=== PATIENT | female | born 2000 | race Two or more races ===

== ENCOUNTER → 2024-07-12 15:26 | Outpatient (CLI) | payer OTHER | END | disposition home or self-care (01) | LOC: PRENATAL 15:26 | PROVIDERS: ATTEND Obstetrics & Gynecology Maternal & Fetal Medicine | DX: O26.849 Uterine size-date discrepancy, unspecified trimester (principal); O36.8199 Decreased fetal movements, unspecified trimester, other fetus; Z3A.32 32 weeks gestation of pregnancy ==

== ENCOUNTER 2024-08-29 07:34 | Inpatient (IN) | payer OTHER ==
[~2024-08-29] VITALS: Ht 157.5 cm; Wt 63.5 kg
[2024-08-29 08:25] VITALS: BP 118/64
[2024-08-29] MEDS ORDERED: AMPICILLIN SODIUM 1,000 MG VIAL IV SCH (09:00)
[2024-08-29] MEDS ORDERED: RINGERS SOLUTION,LACTATED 1,000 ML IV SCH (09:00)
[2024-08-29] MEDS ORDERED: AMPICILLIN SODIUM 2,000 MG VIAL IV ONE (09:00)
[2024-08-29 09:22] LABS: HEMATOCRIT 32.5 % (36.0-45.00); HEMOGLOBIN 11.4 g/dL (12.0-15.00); MEAN CELL VOLUME 92.7 fL (80.00-100.00); MEAN CORPUSCULAR HEMOGLOBIN 32.5 pg (27.00-32.0); MEAN CORPUSCULAR HGB CONC 35.1 g/dl (32.0-36.0); PLATELET COUNT 246 K/uL (150-450); RED BLOOD COUNT 3.51 M/uL (4.00-6.00); RED CELL DISTRIBUTION WIDTH 13.8 % (11.5-14.5)
[2024-08-29 09:30] LABS: INR < 0.93; PARTIAL THROMBOPLASTIN TIME 24.8 SECONDS (22.0-34.0); PROTHROMBIN TIME 9.9 SECONDS (9.0-11.5)
[2024-08-29 09:45] LABS: URINE APPEARANCE Clear; URINE BILIRRUBIN Negative (NEGATIVE); URINE BLOOD Negative; URINE COLOR Yellow; URINE GLUCOSE Negative (NEGATIVE); URINE KETONE Trace (NEGATIVE); URINE LEUKOCYTE Large; URINE NITRATE Negative; URINE PROTEIN Negative (NEGATIVE)
[2024-08-29 09:49] LABS: URINE BACTERIA 4329.2 uL (0.0-1933); URINE EPITHELIAL CELLS 83.3 uL (0.0-38.8); URINE RBC 2.1 uL (0.0-20.8)
[2024-08-29 09:52] LABS: URINE CAST 0.15 uL (0.0-1.40)
[2024-08-29 10:14] LABS: ALBUMIN 2.7 gm/dL (3.4-5.0); BILIRUBIN TOTAL 1.34 mg/dL (0.3-1.2); CALCIUM 9.1 mg/dL (8.5-10.1); CREATININE SERUM 0.52 mg/dL (0.55-1.02); GFR 144.87; GLOBULINA 3.7 G/DL (2.4-3.5); POTASSIUM 4.22 mEq/L (3.5-5.1); TOTAL PROTEIN 6.4 gm/dL (6.4-8.2)
[2024-08-29] MEDS ORDERED: MISOPROSTOL 25 MCG/4 ML GEL.W.APPL VAG ONE (10:45)
[2024-08-29 11:38] VITALS: BP 120/56
[2024-08-29 15:38] VITALS: BP 132/71
[2024-08-29] MEDS ORDERED: OXYTOCIN 500 ML IV SCH (15:45)
[2024-08-29 19:42] VITALS: BP 115/75
[2024-08-29 23:36] VITALS: BP 106/56
[2024-08-30] VITALS (9 sets, daily range): BP systolic 118–136; BP diastolic 63–88
[2024-08-30] MEDS ORDERED: PRENATAL TABLE1 EAC4 PO (09:14)
[2024-08-30] MEDS ORDERED: LABETALOL HCL200 MG PO (09:14)
[2024-08-30] MEDS ORDERED: MORPHINE SULFATE 4 MG/ML CARTRIDGE IV ONE ×2 (10:00→14:00)
[2024-08-30] MEDS ORDERED: IBUprofen 400 MG TABLET PO PRN (20:45)
[2024-08-30] MEDS ORDERED: CHLORHEXIDINE GLUCONATE 120 ML BOTTLE TOP SCH (21:00)
[2024-08-30] MEDS ORDERED: OXYTOCIN 10 UNITS/ML VIAL IM STA (21:00)
[2024-08-30] MEDS ORDERED: OXYTOCIN 1,000 ML IV SCH (21:00)
[2024-08-30] MEDS ORDERED: LIDOCAINE HCL 1% 10ML VIAL IJ ONE (21:00)
[2024-08-31] VITALS: BP 122/83
[2024-08-31 02:02] LABS: HEMATOCRIT 28.9 % (36.0-45.00); MEAN CORPUSCULAR HGB CONC 34.7 g/dl (32.0-36.0); PLATELET COUNT 240 K/uL (150-450); RED BLOOD COUNT 3.11 M/uL (4.00-6.00); RED CELL DISTRIBUTION WIDTH 13.4 % (11.5-14.5)
[2024-08-31 02:03] LABS: MEAN CORPUSCULAR HEMOGLOBIN 32.1 pg (27.00-32.0)
[2024-08-31 07:48] VITALS: BP 122/58
[2024-08-31 15:53] VITALS: BP 116/79
[2024-09-01] VITALS: BP 97/65
[2024-09-01 08:00] VITALS: BP 112/69
== END 2024-09-01 14:08 | disposition home or self-care (01) | DRG 807 ==
LOC: LDR 07:34 → OB/GYN 08-30 21:09
PROVIDERS: ADMIT Obstetrics & Gynecology; ATTEND Obstetrics & Gynecology
PROC: 3E0P7VZ Introduction of Hormone into Female Reproductive, Via Natural or Artificial Opening (ICD-10-PCS; 2024-08-29)
PROC: 4A1HXCZ Monitoring of Products of Conception, Cardiac Rate, External Approach (ICD-10-PCS; 2024-08-29)
PROC: 10E0XZZ Delivery of Products of Conception, External Approach (ICD-10-PCS; principal; 2024-08-30)
PROC: 0KQM0ZZ Repair Perineum Muscle, Open Approach (ICD-10-PCS; 2024-08-30)
PROC: 0W8NXZZ Division of Female Perineum, External Approach (ICD-10-PCS; 2024-08-30)
PROC: 3E033VJ Introduction of Other Hormone into Peripheral Vein, Percutaneous Approach (ICD-10-PCS; 2024-08-30)
DX: O70.1 Second degree perineal laceration during delivery (principal); O99.824 Streptococcus B carrier state complicating childbirth; Z37.0 Single live birth; Z3A.39 39 weeks gestation of pregnancy; Z20.822 Contact with and (suspected) exposure to COVID-19